=== PATIENT | female | born 1990 | race Caucasian/White ===

== ENCOUNTER 2016-08-15 21:10 | Observation (INO) | payer OTHER ==
[~2016-08-15] VITALS: Ht 152.4 cm; Wt 88.5 kg
[~2016-08-15 21:10] MED LIST: MOTRIN800 MG PO; PRENATAL1 TA1 PO
[2016-08-15 21:57] VITALS: BP 98/67
[2016-08-15] MEDS ORDERED: OSCAL500 MG PO (22:13)
[2016-08-15] MEDS ORDERED: FERROUS SULFAT325 MG PO (22:13)
[2016-10-13] MEDS ORDERED: MOTRIN600 MG PO (12:02)
== END 2016-08-15 23:10 | disposition home or self-care (01) ==
LOC: MLD 21:10
PROVIDERS: ADMIT Obstetrics & Gynecology; ATTEND Obstetrics & Gynecology
DX: O36.8190 Decreased fetal movements, unspecified trimester, not applicable or unspecified (principal); Z3A.00 Weeks of gestation of pregnancy not specified
CPT/HCPCS: 76819; G0378; Q0092

== ENCOUNTER 2016-10-11 18:13 | Inpatient (IN) | payer OTHER ==
[~2016-10-11] VITALS: Ht 152.4 cm; Wt 88.0 kg
[~2016-10-11 18:13] MED LIST changes: +FERR325E14 PO; -MOTRIN800 MG PO; +OSC500 PO; +PREN-234 PO; -PRENATAL1 TA1 PO
[2016-10-11] MEDS ORDERED: LACTATED RINGERS 1,000 ML IV SCH (18:23)
[2016-10-11] MEDS ORDERED: PROMETHAZINE 25 MG/ML VIAL IVP PRN (18:25)
[2016-10-11] MEDS ORDERED: CARBOPROST 250 MCG/ML AMP IM PRN (18:25)
[2016-10-11] MEDS ORDERED: METHYLERGONOVINE 0.2 MG/ML AMP IM PRN ×2 (18:25→20:40)
[2016-10-11] MEDS ORDERED: OXYTOCIN 10 UNITS/ML VIAL IM SCH (18:25)
[2016-10-11] MEDS ORDERED: OXYTOCIN 20 UNITS/LR PREMIX 1,000 ML IV SCH (18:30)
[2016-10-11 18:36] VITALS: BP 123/68
[2016-10-11 19:02] LABS: BASOPHILS # (AUTO) 0.1 K/uL (0.00-0.22); BASOPHILS % (AUTO) 0.8 % (0.0-2.0); EOSINOPHILS # (AUTO) 0.1 K/uL (0-0.4); EOSINOPHILS % (AUTO) 1.3 % (0.0-4.0); HEMATOCRIT 41.5 % (36-48); HEMOGLOBIN 13.7 g/dL (12.0-16.0); LYMPHOCYTES # (AUTO) 2.3 K/uL (2.5-16.5); LYMPHOCYTES % (AUTO) 21.1 % (20.5-51.1); MEAN CORPUSCULAR HEMOGLOBIN 30 pg (27-31); MEAN CORPUSCULAR HGB CONC 33 g/dL (33-37); MEAN CORPUSCULAR VOLUME 90 fL (80-94); MONOCYTES # (AUTO) 0.7 K/uL (0.8-1.0); MONOCYTES % (AUTO) 6.4 % (1.7-9.3); NEUTROPHILS # (AUTO) 7.5 K/uL (1.8-7.7); NEUTROPHILS % (AUTO) 70.4 % (42.2-75.2); PLATELET COUNT (AUTO) 186 K/uL (140-450); RED CELL DISTRIBUTION WIDTH 13.5 % (11.6-13.7); WHITE BLOOD COUNT (AUTO) 10.7 K/uL (4.8-10.8)
[2016-10-11 19:04] LABS: APPEARANCE,URINE CLEAR (CLEAR); BILIRUBIN,URINE NEGATIVE (NEGATIVE); BLOOD, URINE TRACE-I (NEGATIVE); COLOR,URINE YELLOW (YELLOW); LEUKOCYTE ESTERASE ,URINE NEGATIVE (NEGATIVE); NITRITE, URINE NEGATIVE (NEGATIVE); PH,URINE 5.5 (5.0-9.0); PROTEIN,URINE NEGATIVE (NEGATIVE); UGLUCOSE NEGATIVE (NEGATIVE); UROBILINOGEN,URINE 0.2 EU/dL (0.2 - 1)
[2016-10-11 19:49] LABS: BACTERIA,URINE FEW /HPF (None Seen); RBC,URINE 0-5 (RARE) /HPF (0-5); SQUAMOUS EPITHELIAL CELL,UR 4-10 (MOD) /LPF (0-3 (FEW)); WBC,URINE 0-5 (RARE) /HPF (0-5)
[2016-10-11] MEDS ORDERED: BUPIVACAINE 0.125%/NS PREMIX 250 ML ONE (20:19)
[2016-10-11] MEDS ORDERED: OXYTOCIN 20 UNITS/LR PREMIX 1,000 ML IV ONE (20:34)
[2016-10-11] MEDS ORDERED: OXYTOCIN 10 UNITS/ML VIAL ONE (20:34)
[2016-10-11] MEDS ORDERED: HYDROcodone/APAP 5/325 MG 1 TAB TAB PO PRN (20:40)
[2016-10-11] MEDS ORDERED: MEASLES, MUMPS, AND RUBELLA 1 VIAL SQVAC PRN (20:40)
[2016-10-11] MEDS ORDERED: WITCH HAZEL 40 PAD PACKAGE TP PRN (20:40)
[2016-10-11] MEDS ORDERED: oxyCODONE/APAP 5/325 MG 1 TAB TAB PO PRN (20:40)
[2016-10-11] MEDS ORDERED: BENZOCAINE/MENTHOL 20%-0.5% 60 GM CAN TP PRN (20:40)
[2016-10-11] MEDS ORDERED: OXYTOCIN 10 UNITS/ML VIAL IM PRN (20:40)
[2016-10-11] MEDS ORDERED: TEMAZEPAM 15 MG CAP PO PRN (20:40)
[2016-10-11] MEDS ORDERED: IBUPROFEN 800 MG TAB PO PRN (20:40)
[2016-10-11] MEDS ORDERED: DOCUSATE SOD/SENNA 50/8.6 MG 1 TAB PO SCH (21:00)
[2016-10-12 06:45] LABS: HEMATOCRIT 35.3 % (36-48); HEMOGLOBIN 11.5 g/dL (12.0-16.0)
--- NOTE | 2016-10-13 06:52 | NUR ---
PATIENT HAS BEEN SCREENED AND CATEGORIZED LOW NUTRITION RISK. PATIENT WILL BE SEEN WITHIN 7 DAYS OF ADMISSION. 10/18/16 LARISSA MURDOCK MS, RDN
[2016-10-13] MEDS ORDERED: IBUP-2213 PO (12:02)
== END 2016-10-13 13:05 | disposition home or self-care (01) | DRG 560 ==
LOC: MLD 18:13 → MFCC 10-12 00:15
PROVIDERS: ADMIT Obstetrics & Gynecology; ATTEND Obstetrics & Gynecology
PROC: 10E0XZZ Delivery of Products of Conception, External Approach (ICD-10-PCS; principal; 2016-10-11)
PROC: 0HQ9XZZ Repair Perineum Skin, External Approach (ICD-10-PCS; 2016-10-11)
PROC: 10907ZC Drainage of Amniotic Fluid, Therapeutic from Products of Conception, Via Natural or Artificial Opening (ICD-10-PCS; 2016-10-11)
PROC: 3E0R3KZ Introduction of Other Diagnostic Substance into Spinal Canal, Percutaneous Approach (ICD-10-PCS; 2016-10-11)
DX: O77.0 Labor and delivery complicated by meconium in amniotic fluid (principal); O70.0 First degree perineal laceration during delivery; Z37.0 Single live birth; Z3A.39 39 weeks gestation of pregnancy
CPT/HCPCS: 36415; 51702; 59409; 81001; 85018; 85025; 86592; 86886; 86900; 86901; 90715; J2590; J3490; J7120

== ENCOUNTER 2020-11-30 00:14 | Emergency (ER) | payer OTHER ==
[~2020-11-30] VITALS: Ht 152.4 cm; Wt 77.6 kg
[~2020-11-30 00:14] MED LIST changes: +IBUP-2213 PO; -OSC500 PO
[2020-11-30 00:24] VITALS: BP 111/95
[2020-11-30 03:12] VITALS: BP 114/86
== END 2020-11-30 03:12 | disposition home or self-care (01) ==
LOC: MED 00:14
DX: S43.401A Unspecified sprain of right shoulder joint, initial encounter (principal); X58.XXXA Exposure to other specified factors, initial encounter; Y93.89 Activity, other specified; Y92.89 Other specified places as the place of occurrence of the external cause; Y99.8 Other external cause status
CPT/HCPCS: 73030; 99283

== ENCOUNTER 2022-05-20 19:57 | Emergency (ER) | payer OTHER ==
[~2022-05-20] VITALS: Ht 152.4 cm; Wt 79.4 kg
[2022-05-20 20:21] VITALS: BP 125/83
--- NOTE | 2022-05-20 20:26 | NUR ---
TO LOBBY FOLLOWING TRIAGE
--- NOTE | 2022-05-20 21:09 | NUR ---
PT TAKEN TO BED 6 FROM XRAY
--- NOTE | 2022-05-20 21:17 | NUR ---
31YR OLD FEMALE BIB SELF C/O FB TO L FOOT. PT SITTED ON BROKEN GLASS. SHARP / DULL 8/10 PAIN. PT IS A&O X4. GOOD CAP REFILL GOOD ROM. SOME SWELLING TO FOOT NO DISCOLORING. BED AT LOWEST LEVEL AND LOCKED IN PLACE. SIDE RAILS UP X1 NKDA NO HX
[2022-05-20] MEDS ORDERED: IBUPROFEN 600 MG TAB PO ONE (21:20)
--- NOTE | 2022-05-20 22:48 | NUR ---
Patient being evaluated by physician at bedside.
--- NOTE | 2022-05-20 23:04 | NUR ---
Patient discharged with v/s stable. Written and verbal after care instructions given and explained. Patient verbalized understanding. Ambulatory with steady gait. All questions addressed prior to discharge. Advised to follow up with PMD.
== END 2022-05-20 23:04 | disposition home or self-care (01) ==
LOC: MED 19:57
DX: S90.852A Superficial foreign body, left foot, initial encounter (principal); Z79.899 Other long term (current) drug therapy; W45.8XXA Other foreign body or object entering through skin, initial encounter; Y93.89 Activity, other specified; Y92.89 Other specified places as the place of occurrence of the external cause; Y99.8 Other external cause status
CPT/HCPCS: 10120; 73630; 90715; 99285

== ENCOUNTER 2023-07-29 00:10 | Emergency (ER) | payer OTHER ==
[~2023-07-29] VITALS: Ht 152.4 cm; Wt 82.1 kg
[2023-07-29 00:21] VITALS: BP 132/72; PULSE 99; RESP 16; TEMP 97.1; O2SAT 99
[2023-07-29] MEDS: KETOROLAC 30 MG/ML VIAL IM ONE (02:46)
[2023-07-29] MEDS: AMOXICILLIN 500 MG CAP PO ONE (02:47)
[2023-07-29] MEDS ORDERED: CHLO473S62 PO (02:48)
[2023-07-29] MEDS ORDERED: IBUP-2213 PO (02:48)
[2023-07-29] MEDS ORDERED: AMOX500C25 PO (02:48)
[2023-07-29] MEDS ORDERED: ACET-8905 PO (02:48)
== END 2023-07-29 02:56 | disposition home or self-care (01) ==
LOC: MED 00:10
DX: K04.7 Periapical abscess without sinus (principal); Z79.899 Other long term (current) drug therapy
CPT/HCPCS: 96372; 99283; J1885